=== PATIENT | female | born 1930 | race Caucasian/White ===

== ENCOUNTER 2016-07-01 13:04 | Inpatient (IN) | payer MEDICARE ==
[~2016-07-01] VITALS: Ht 152.4 cm; Wt 46.7 kg
[2016-07-01] VITALS (8 sets, daily range): BP systolic 94–200; BP diastolic 48–70
--- NOTE | ~2016-07-01 | PR ---
[place], [place] PROGRESS NOTE NAME: LOIS SAENZ [facility] #: [id number] UNIT #: [id number] ROOM: [place] [address] DOCTOR: ZEENAT ARMSTRONG III, DPM BIRTHDATE: [birth year] DOS: 07/05/2016 TIME OF DICTATION: 4:48 p.m. CHIEF COMPLAINT: Left heel ulceration. HISTORY OF PRESENT ILLNESS: This is an elderly female seen at bedside for followup and reevaluation of a left heel ulceration. The patient is seen at bedside for evaluation regarding left heel ulceration. OBJECTIVE: EXTREMITIES: Neurovascular status is unchanged. She has a quarter sized ulceration appreciated at the inferior aspect of the left heel with exposed bone that is noted. No cellulitis, no lymphangitis, no pus drainage is noted. Granular base is noted surrounding the ulceration. NEUROLOGIC: Decreased protective sensation. ORTHOPEDICS: Lower extremity contractures appreciated bilateral. ASSESSMENT: Heel ulceration with probable osteomyelitis, left - stable. TREATMENT PLANS AND RECOMMENDATIONS: Findings as well as prognosis was discussed in detail with the nursing staff. I will reach out to the family regarding her care. I feel it is best to proceed with oral antibiotics as well as local wound care at this time. Ulceration does not appear to be infected at this time. Again, we will touch base with the family regarding management. The patient appears to be bedridden with lower extremity contractures and probable osteomyelitis to the left heel. Again, we will continue to follow the patient while she is inhouse and will speak further about this with the family as well. ZEENAT ARMSTRONG III, DPM CM:PNTRANS [id number] ZEENAT ARMSTRONG III, DPM 07/06/16 0248 interface
--- NOTE | ~2016-07-01 | CON ---
[place], [place] REPORT OF CONSULTATION [facility] [id number] UNIT #: [id number] ROOM: [place] [address] DOCTOR: KWAME SUTHERLANDEJ BIRTHDATE: [birth year] DOS: 07/03/2016 PODIATRY CONSULTATION NOTE SUBJECTIVE: This is an 85-year-old female, who is seen as consult for evaluation of the left heel wound. From recent history and previous notes, she has had this wound for a quite some time. She is nonambulatory. She has seen Dr. Hartman last year for this wound and he recommended conservative management at that time. The patient is nonverbal at this time. PAST MEDICAL HISTORY: Positive for coronary artery disease, chronic kidney disease, dementia, depression, essential hypertension, contractures of both lower extremities. ALLERGIES: No known drug allergies. CURRENT MEDICATIONS: Include vancomycin, potassium, Exelon, Claritin, labetalol, hydrochlorothiazide, Lovenox, Plavix, meropenem, Tofranil, Senokot, Zofran and Carson. OBJECTIVE: Upon lower extremity physical examination, there are contractures noted to both lower extremities. The pedal pulses are barely palpable bilaterally. Skin temperature is warm. CFT is 2 seconds to all digits. There is no significant dependent edema bilaterally. The right foot has no open wounds at this time. The left heel appears to have a chronic wound at the plantar posterior portion of the heel with periosteum appears exposed in part of the wound. There is minimal erythema around the wound, less than 1 cm with no purulent drainage or malodor. There is some mild serous drainage. Wound is fairly granular. Again, periosteum is exposed. No bone is palpable. No signs of abscess or cellulitis. Wound appears chronic in nature. DIAGNOSTIC DATA: X-ray was possibly showed probable osteomyelitis of the heel. 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 PLAN: Consult is performed. Recommend dry protective dressing at this time, to the heel. We discussed the case with Dr. Hartman, not sure how aggressive we want to get with her, this wound has been there for sometime and it is not clinically infected. She may have chronic osteomyelitis. We will discuss the case with him. Consider debridement, but right now the wound is fairly clean. Continue with offloading the areas. We will follow up the patient tomorrow. Continue IV antibiotics at this time. Thank you for the opportunity to take part in care of this patient. [place], [place] REPORT OF CONSULTATION NAME: LOIS SAENZ UNIT #: [id number] ROOM: [place] [address] DOCTOR: EJ PUENTE DPM BIRTHDATE: [birth year] EJ PUENTE DPM CM:CONSTR:REPORT OF CONSULTATION 1155 07/03/16 1323 interface
[~2016-07-01 13:04] MED LIST: ALDACTAZIDE 501 TAB PO; ALDACTIZIDE 25-1 TAB PO; ARICEPT10 MG PO; ASPIRIN81 MG PO; BACTRIM DS 8001 TA1 PO; CALCIUM1 CAP PO; CLARITIN10 MG PO; CLOPIDOGREL75 MG PO; DOMEBORO1 PDR; FERRIMIN 150150 M1 PO; FLONASE0.05 MG/AC NS; IMIPRAMINE50 MG PO; IRON65 MG PO; KLOR-CON M2020 MEQ PO; KLOR-CON20 MEQ PO; OCUVITE1 TA1 PO; PLAVIX75 MG PO; PRAVACHOL20 MG PO; PRAVASTATIN SOD40 MG PO; Slow-K 8MEQ8 MEQ PO; TERAZOSIN1 MG PO; VITAMIN B-150 MG PO; VITAMIN C500 M4 PO; VITAMIN D31000 I1 PO; VITAMIN D32000 I1 PO; WOMEN'S ONE DAI1 TAB PO; [UNRECOGNIZED DRUG - OTHER]; [UNRECOGNIZED DRUG - OTHER]; [UNRECOGNIZED DRUG - OTHER]; [UNRECOGNIZED DRUG - OTHER] PO
[2016-07-01 13:44] LABS: BASO # 0.1 10*3/uL (0.0-0.1); BASO % 0.2 % (0.0-1.0); EOS % 0.1 % (1.0-4.0); HEMATOCRIT 42.6 % (37.0-47.0); HEMOGLOBIN 13.7 g/dl (12.0-16.0); IG # 0.1 10*3/uL (0.0-0.1); LYMPH # 1.4 10*3/uL (1.3-4.4); LYMPH % 6.5 % (27.0-41.0); MEAN CELL VOLUME 95.5 fl (81.0-99.0); MEAN CORPUSCULAR HGB 30.7 pg (27.0-31.0); MEAN CORPUSCULAR HGB CONC 32.2 g/dl (33.0-37.0); MEAN PLATELET VOLUME 12.1 fl (9.6-12.3); MONO # 1.2 10*3/uL (0.1-1.0); MONO % 5.9 % (3.0-9.0); NEUT # 18.1 10*3/uL (2.3-7.9); NEUT % 86.8 % (47.0-73.0); PLATELET COUNT AUTOMATED 233 10*3/uL (130-400); RED BLOOD COUNT 4.46 10*6/uL (4.10-5.10); RED CELL DISTRI WIDTH 13.8 % (0-14.5); WHITE BLOOD COUNT 20.9 10*3/uL (4.8-10.8)
[2016-07-01 13:52] LABS: INTERNATIONAL NORM RATIO 1.1 (2.0-3.5); PROTHROMBIN TIME 11.4 SECONDS (9.0-12.4)
[2016-07-01 13:59] LABS: BILIRUBIN NEGATIVE (NEGATIVE); BLOOD NEGATIVE (NEGATIVE); CLARITY SL CLOUDY (CLEAR); COLOR YELLOW (YELLOW); GLUCOSE NEGATIVE (NEGATIVE); KETONE NEGATIVE (NEGATIVE); LEUKO ESTERASE NEGATIVE (NEGATIVE); NITRITE NEGATIVE (NEGATIVE); PROTEIN 2+ (NEGATIVE); SPECIFIC GRAVITY 1.015 (1.005-1.030); UROBILINOGEN 0.2 E.U./dl (0.2-1.0)
[2016-07-01 14:03] LABS: ALBUMIN 3.4 gm/dl (3.1-4.5); BILIRUBIN, TOTAL 0.7 mg/dl (0.2-1.0); MAGNESIUM 2.2 mg/dL (1.5-2.1); POTASSIUM 3.7 mmol/L (3.5-5.1); TOTAL PROTEIN 7.8 gm/dL (6.4-8.2); TROPONIN I 0.024 ng/ml (<0.045)
[2016-07-01 14:17] LABS: ABG BASE EXCESS 3.1 mmol/L (-2.0-2.0); ABG TEMPERATURE 99.7 F (98.0-99.0); ARTERIAL BLOOD GAS PH 7.503 (7.35-7.45)
[2016-07-01 14:46] LABS: MUCOUS 2+; RBC 0-2 rbc/hpf (0-2); URINE REFLEX COMMENT NO (NO); WBC 0-2 wbc/hpf (0-5)
[2016-07-01 14:47] LABS: CPK 21 U/L (26-192)
[2016-07-01 14:50] LABS: CKMB < 0.5 ng/ml (0.5-3.6)
[2016-07-01] MEDS ORDERED: ASPIRIN81 M1 PO (15:18)
[2016-07-01] MEDS ORDERED: POTASSIUM GLUC550 M1 PO ×2 (15:19→16:21)
[2016-07-01] MEDS ORDERED: RIVASTIGMINE1 EAC1 T (16:17)
[2016-07-01] MEDS ORDERED: HYDROCHLOROTHIA25 M1 PO (16:18)
[2016-07-01] MEDS ORDERED: CLARITIN10 MG PO (16:18)
[2016-07-01] MEDS ORDERED: PLAVIX75 M1 PO (16:18)
[2016-07-01] MEDS ORDERED: VITAMIN C500 M4 PO (16:18)
[2016-07-01] MEDS ORDERED: ST. JOSEPH ASPI81 MG PO (16:19)
[2016-07-01] MEDS ORDERED: SENNA CONCENTR8.6 M1 PO (16:20)
[2016-07-01] MEDS ORDERED: [UNRECOGNIZED DRUG - SUPPLY] TP (16:20)
[2016-07-01] MEDS ORDERED: IMIPRAMINE50 MG PO (16:21)
[2016-07-02] VITALS: BP 129/62
[2016-07-02 04:00] VITALS: BP 152/56
[2016-07-02 06:10] LABS: BUN 53 mg/dl (7-24); CARBON DIOXIDE 25 mmol/L (21-32); CHLORIDE 117 mmol/L (98-107); EST GLOM FILT AFRICAN AMERICAN > 60 ml/min; GLUCOSE 108 mg/dL (65-99); MAGNESIUM 2.1 mg/dL (1.5-2.1); POTASSIUM 3.3 mmol/L (3.5-5.1); SODIUM 155 mmol/L (136-145)
[2016-07-02 06:26] LABS: BASO # 0.1 10*3/uL (0.0-0.1); BASO % 0.4 % (0.0-1.0); EOS # 0.1 10*3/uL (0.0-0.4); EOS % 0.5 % (1.0-4.0); HEMATOCRIT 37.6 % (37.0-47.0); HEMOGLOBIN 11.8 g/dl (12.0-16.0); IG # 0.1 10*3/uL (0.0-0.1); LYMPH # 0.9 10*3/uL (1.3-4.4); LYMPH % 6.4 % (27.0-41.0); MEAN CELL VOLUME 97.7 fl (81.0-99.0); MEAN CORPUSCULAR HGB 30.6 pg (27.0-31.0); MEAN CORPUSCULAR HGB CONC 31.4 g/dl (33.0-37.0); MEAN PLATELET VOLUME 12.6 fl (9.6-12.3); MONO # 0.9 10*3/uL (0.1-1.0); NEUT # 11.2 10*3/uL (2.3-7.9); NEUT % 85.2 % (47.0-73.0); RED BLOOD COUNT 3.85 10*6/uL (4.10-5.10); RED CELL DISTRI WIDTH 13.8 % (0-14.5); WHITE BLOOD COUNT 13.2 10*3/uL (4.8-10.8)
[2016-07-02 06:27] LABS: PLATELET COUNT AUTOMATED 147 10*3/uL (130-400)
[2016-07-02 08:00] VITALS: BP 152/56
[2016-07-02 08:34] LABS: VITAMIN D, 25-HYDROXY 31.9 ng/mL (30-100)
[2016-07-02 09:00] LABS: FOLIC ACID > 24.00 ng/mL (>5.38)
[2016-07-02 12:00] VITALS: BP 166/63
[2016-07-02 16:00] VITALS: BP 140/58
[2016-07-02 20:00] VITALS: BP 123/68
[2016-07-03] VITALS: BP 141/62
[2016-07-03 05:58] LABS: BASO % 0.3 % (0.0-1.0); EOS # 0.1 10*3/uL (0.0-0.4); HEMATOCRIT 36.3 % (37.0-47.0); HEMOGLOBIN 11.5 g/dl (12.0-16.0); LYMPH # 0.8 10*3/uL (1.3-4.4); LYMPH % 6.9 % (27.0-41.0); MEAN CELL VOLUME 97.1 fl (81.0-99.0); MEAN CORPUSCULAR HGB 30.7 pg (27.0-31.0); MEAN CORPUSCULAR HGB CONC 31.7 g/dl (33.0-37.0); MEAN PLATELET VOLUME 12.5 fl (9.6-12.3); MONO # 0.8 10*3/uL (0.1-1.0); MONO % 6.8 % (3.0-9.0); NEUT # 9.3 10*3/uL (2.3-7.9); NEUT % 84.6 % (47.0-73.0); PLATELET COUNT AUTOMATED 140 10*3/uL (130-400); RED BLOOD COUNT 3.74 10*6/uL (4.10-5.10); RED CELL DISTRI WIDTH 13.6 % (0-14.5)
[2016-07-03 06:10] LABS: BUN 45 mg/dl (7-24); CARBON DIOXIDE 22 mmol/L (21-32); CHLORIDE 117 mmol/L (98-107); EST GLOM FILT AFRICAN AMERICAN > 60 ml/min; GLUCOSE 82 mg/dL (65-99); POTASSIUM 3.9 mmol/L (3.5-5.1); SODIUM 152 mmol/L (136-145)
[2016-07-03 08:00] VITALS: BP 151/62
[2016-07-03 16:00] VITALS: BP 154/46
[2016-07-03 20:00] VITALS: BP 113/43
[2016-07-04] VITALS: BP 132/59
[2016-07-04 05:36] LABS: BASO % 0.2 % (0.0-1.0); EOS # 0.1 10*3/uL (0.0-0.4); EOS % 1.2 % (1.0-4.0); HEMATOCRIT 35.6 % (37.0-47.0); HEMOGLOBIN 11.3 g/dl (12.0-16.0); LYMPH # 0.6 10*3/uL (1.3-4.4); LYMPH % 6.2 % (27.0-41.0); MEAN CELL VOLUME 94.7 fl (81.0-99.0); MEAN CORPUSCULAR HGB 30.1 pg (27.0-31.0); MEAN CORPUSCULAR HGB CONC 31.7 g/dl (33.0-37.0); MEAN PLATELET VOLUME 12.1 fl (9.6-12.3); MONO # 0.5 10*3/uL (0.1-1.0); MONO % 5.8 % (3.0-9.0); NEUT # 7.8 10*3/uL (2.3-7.9); NEUT % 86.2 % (47.0-73.0); PLATELET COUNT AUTOMATED 158 10*3/uL (130-400); RED BLOOD COUNT 3.76 10*6/uL (4.10-5.10); RED CELL DISTRI WIDTH 13.4 % (0-14.5); WHITE BLOOD COUNT 9.1 10*3/uL (4.8-10.8)
[2016-07-04 05:52] LABS: CARBON DIOXIDE 27 mmol/L (21-32); CHLORIDE 112 mmol/L (98-107); EST GLOM FILT AFRICAN AMERICAN > 60 ml/min; GLUCOSE 111 mg/dL (65-99); POTASSIUM 3.2 mmol/L (3.5-5.1); SODIUM 150 mmol/L (136-145)
[2016-07-04 05:53] LABS: BUN 35 mg/dl (7-24)
[2016-07-04 08:00] VITALS: BP 150/57
[2016-07-04 16:00] VITALS: BP 116/41
[2016-07-04 20:00] VITALS: BP 126/74
[2016-07-05] VITALS: BP 120/72
[2016-07-05 05:25] LABS: CARBON DIOXIDE 25 mmol/L (21-32); CHLORIDE 109 mmol/L (98-107); EST GLOM FILT AFRICAN AMERICAN > 60 ml/min; GLUCOSE 104 mg/dL (65-99); POTASSIUM 3.8 mmol/L (3.5-5.1); SODIUM 145 mmol/L (136-145)
[2016-07-05 05:28] LABS: BUN 25 mg/dl (7-24)
[2016-07-05 06:09] LABS: HEMATOCRIT 32.8 % (37.0-47.0); MEAN CELL VOLUME 93.2 fl (81.0-99.0); MEAN CORPUSCULAR HGB 31.3 pg (27.0-31.0); MEAN CORPUSCULAR HGB CONC 33.5 g/dl (33.0-37.0); MEAN PLATELET VOLUME 12.5 fl (9.6-12.3); PLATELET COUNT AUTOMATED 176 10*3/uL (130-400); RED BLOOD COUNT 3.52 10*6/uL (4.10-5.10); RED CELL DISTRI WIDTH 13.5 % (0-14.5); WHITE BLOOD COUNT 9.5 10*3/uL (4.8-10.8)
[2016-07-05 06:51] LABS: LYMPHOCYTE # 0.6 10*3/uL (1.3-4.4); METAMYELOCYTES 1 % (0-0); MONOCYTE # 0.4 10*3/uL (0.1-1.0); NEUTROPHIL # 8.5 10*3/uL (2.3-7.9); NEUTROPHILS 89 % (47-73); TOTAL CELLS COUNTED 100 #CELLS
[2016-07-05 06:52] LABS: PLATELET SUFFICIENCY NORMAL (NORMAL)
[2016-07-05 08:00] VITALS: BP 101/50
[2016-07-05 09:00] VITALS: BP 101/35
[2016-07-05 16:00] VITALS: BP 140/80
[2016-07-06] VITALS: BP 138/55
[2016-07-06 08:00] VITALS: BP 129/55
== END 2016-07-06 11:00 | disposition hospice, home (50) | DRG 871 ==
LOC: ED 13:04 → EDHOLD 15:02 → ICCU 15:02
PROVIDERS: Internal Medicine; Internal Medicine Hospice and Palliative Medicine; Nurse Practitioner Family
DX: A41.9 Sepsis, unspecified organism (principal); G93.41 Metabolic encephalopathy; E87.3 Alkalosis; L89.153 Pressure ulcer of sacral region, stage 3; E87.0 Hyperosmolality and hypernatremia; F03.90 Unspecified dementia, unspecified severity, without behavioral disturbance, psychotic disturbance, mood disturbance, and anxiety; L97.429 Non-pressure chronic ulcer of left heel and midfoot with unspecified severity; R13.10 Dysphagia, unspecified; F33.9 Major depressive disorder, recurrent, unspecified; M86.9 Osteomyelitis, unspecified; T76.91XA Unspecified adult maltreatment, suspected, initial encounter; I25.10 Atherosclerotic heart disease of native coronary artery without angina pectoris; I12.9 Hypertensive chronic kidney disease with stage 1 through stage 4 chronic kidney disease, or unspecified chronic kidney disease; N18.9 Chronic kidney disease, unspecified; E86.0 Dehydration; Z90.710 Acquired absence of both cervix and uterus; K44.9 Diaphragmatic hernia without obstruction or gangrene; R73.9 Hyperglycemia, unspecified; E83.41 Hypermagnesemia; R80.9 Proteinuria, unspecified; N18.3 Chronic kidney disease, stage 3 (moderate); Z66 Do not resuscitate